=== PATIENT | male | born 1950 | race Caucasian/White ===

== ENCOUNTER 2024-01-09 05:04 | Inpatient (IN) | payer MEDICARE, SELFPAY ==
[2024-01-05 08:06] VITALS: BMI 28.8
[2024-01-05 08:58] LABS: Hematocrit 43.6 % (39.0-52.0); Hemoglobin 14.5 g/dL (13.0-18.0); Mean Corp Hgb Conc. 33.3 g/dL (33.0-37.0); Mean Corpuscular Hgb 28.9 pg (27.0-31.0); Mean Platelet Volume 9.3 fL (7.4-10.4); Platelet Count 226 10^3/uL (130-400); Red Blood Cell Count 5.01 10^6/uL (4.70-6.10); Red Cell Dist. Width 13.2 % (11.5-14.5); White Blood Cell Count 6.8 10^3/uL (4.8-10.8)
[2024-01-05 09:10] LABS: INR 1.06; PT 13.8 Sec (11.4-14.6)
[2024-01-05 09:11] LABS: APTT 29.1 Sec (23.4-35.0)
[2024-01-05 09:13] LABS: Urine Albumin Negative (Neg - Trace); Urine Bilirubin Negative (Negative); Urine Character Clear (Clear); Urine Color Yellow; Urine Glucose 3+ (Negative); Urine Ketone Negative (Negative); Urine Leukocyte Negative (Negative); Urine Nitrite Negative (Negative); Urine Occult Blood Negative (Negative); Urine Specific Gravity 1.015 (<1.030); Urine Urobilinogen Negative (Neg - 1+)
--- NOTE | 2024-01-05 10:30 | CM ---
Chart reviewed. Met with the patient and his in PAT. Reviewed preoperative and postoperative instructions and restrictions, along with showering guidelines. Gave patient 2 soaps. Patient is agreeable to a home visit by CT Transitional RN.
Patient is independent of ADLS, lives with his in a split level home, 0 LING, 0 DME. Plan is for the patient to return home with CT Transitional RN. CM to follow
[2024-01-05 10:43] LABS: ALT (SGPT) 25 U/L (0-50); AST (SGOT) 24 U/L (17-59); Albumin 4.9 g/dl (3.5-5.0); Alkaline Phosphatase 71 U/L (38-126); Blood Urea Nitrogen 18 mg/dl (9-20); Calcium 10.3 mg/dl (8.4-10.2); Carbon Dioxide 29 mmol/L (22-30); Chloride 98 mmol/L (98-107); Direct Bilirubin 0.4 mg/dl (0.0-0.4); Estimated Creatinine Clearance 63 ml/min; Glucose 113 mg/dl (70-99); Potassium 4.2 mmol/L (3.5-5.1); Sodium 138 mmol/L (135-145); Total Bilirubin 0.7 mg/dl (0.2-1.3); Total Protein 7.5 g/dl (6.3-8.2); eGFR > 60.00
[2024-01-05 11:39] LABS: Glycohemoglobin (HgbA1c) 6.9 % (4.0-5.6)
--- NOTE | 2024-01-08 22:35 | W.PN.CT ---
Assessment / Plan
-
Assessment:
-S/P CABG x 4 (In situ ALVARENGA to LAD, Ao to radial artery to diagonal, Ao to RSVG to OM1 sequential to OM 3)/Open left radial artery harvest/ R EVH/ELAA (35 mm clip) by Dr. Peña, 01/09/24, pod#1
-Multivessel CAD
-[place]
-Sinus bradycardia
-[id number] score of 3
-LVEF 55% per intraop ENA
-HTN
-Hyperlipidemia
-T2DM (A1C 6.9)
-Left Sciatica
-Prostate Ca, currently being watched
-S/P Right inguinal herniorrhaphy
-S/P Tonsillectomy/Adenoidectomy
-Acute postop blood loss/Anemia (stable without blood transfusion)
-Acute postop atelectasis
-Acute postop hypovolemia with subsequent hypervolemia
Plan:
-No major issues overnight. Hemodynamically and neurologically intact
-Successfully extubated on 01/09/24 @ 1500
-Weaned of NTG gtt overnight, remains on insulin per protocol
-U/O since OR
-Cont. current meds (ASA, Amiodarone, Lopressor, Lipitor, Norvasc for radial graft; will add Plavix)
-Monitor chest tube drainage: 2meds , L pleural
-D/C'd SLIC and a-line @ 0400
-Maintain insulin gtt another day per protocol, tele phase when off
-Diabetes education/management consult given hgb A1C of 6.9
-Consider cantu another day given Prostate Ca
-Maintain cordis
-Maintain temporary PW (will pull before d/c home)
-Encourage use of IS
-Wean off of O2 as tolerated
-OOB into chair/Ambulate
Subjective
-
Date of Service: January 08, 2024
Objective Data
-
Lab Results
04/11/24 08:20
01/05/24 08:20
PT 13.8 Sec (11.4-14.6) 01/05/24 08:20
INR 1.06 01/05/24 08:20
APTT 29.1 Sec (23.4-35.0) 01/05/24 08:20
[2024-01-09] VITALS (21 sets, daily range): BP systolic 77–175; BP diastolic 59–85; BMI 28.2
--- NOTE | 2024-01-09 06:00 | PTCARENOTE ---
Received pt as SDA for CABG surgery; ABO lab obtained and sent; pt prepped and cliped; x2 showers at home confirmed; CHG wipes provided; gown provided; pt asked all admission questions; home medications reviewed; pre-op checklist review with pt;
pre-op medications administered; pt's at bedside; awaiting CVOR.
[2024-01-09] MEDS: MAGNESIUM OXIDE 500 MG PO (06:21)
[2024-01-09] MEDS: LOPRESSOR 12.5 MG PO ×2 (06:21→18:12)
[2024-01-09] MEDS: PROTONIX 40 MG PO (06:21)
[2024-01-09] MEDS: BACTROBAN 2% OINTMENT 1 APPLIC NASAL ×2 (06:22→20:22)
--- NOTE | 2024-01-09 06:31 | W.CVOR.SURPR ---
CVOR Surgeon Immed Pre Op
-
I have examined this patient prior to performance of the scheduled procedure.
The patient's condition is unchanged from the time of the dictated/written History and
Physical and the patient is able to undergo the scheduled procedure.
CABG x 3-4 +/- LORRIE Clip
[2024-01-09 06:51] LABS: Hematocrit 42.5 % (39.0-52.0); Hemoglobin 14.3 g/dL (13.0-18.0); Mean Corp Hgb Conc. 33.6 g/dL (33.0-37.0); Mean Corpuscular Hgb 28.8 pg (27.0-31.0); Mean Corpuscular Volume 85.5 fL (80.0-94.0); Mean Platelet Volume 9.1 fL (7.4-10.4); Platelet Count 213 10^3/uL (130-400); Red Blood Cell Count 4.97 10^6/uL (4.70-6.10); Red Cell Dist. Width 13.1 % (11.5-14.5); White Blood Cell Count 6.7 10^3/uL (4.8-10.8)
[2024-01-09 07:14] LABS: Blood Urea Nitrogen 17 mg/dl (9-20); Calcium 9.7 mg/dl (8.4-10.2); Carbon Dioxide 28 mmol/L (22-30); Chloride 102 mmol/L (98-107); Estimated Creatinine Clearance 86 ml/min; Glucose 136 mg/dl (70-99); Potassium 3.8 mmol/L (3.5-5.1); Sodium 140 mmol/L (135-145); eGFR > 60.00
[2024-01-09 07:35] LABS: ACT+ - POC 107 Seconds (82-134)
[2024-01-09 07:37] LABS: Urine Albumin Negative (Neg - Trace); Urine Bilirubin Negative (Negative); Urine Character Clear (Clear); Urine Color Yellow; Urine Glucose 3+ (Negative); Urine Ketone Negative (Negative); Urine Leukocyte Negative (Negative); Urine Nitrite Negative (Negative); Urine Occult Blood 4+ (Negative); Urine Urobilinogen Negative (Neg - 1+); Urine pH 6.5 (5.0-9.0)
[2024-01-09 07:38] LABS: B.E. - POC 0.2 mmol/L; Glucose - POC 139 mg/dl (65-99); HCO3 - POC 24 mmol/L (21-29); Hematocrit - POC 39 % PCV (42-52); Hemodilution- POC Yes; Hemoglobin Calculated - POC 13.2; Ionized Calcium - POC 1.15 mmol/L (1.12-1.27); O2 Saturation %Calculated-POC 99.1 5 (92-96); PCO2 - POC 37 mmHg (35-45); PO2 - POC 133 mmHg (80-100); Potassium - POC 3.3 mmol/L (3.6-5.0); Sodium - POC 144 mmol/L (135-145); pH - POC 7.43 (7.35-7.45)
[2024-01-09 08:37] LABS: Urine Amorphous Seen; Urine Mucus Few
[2024-01-09 08:38] LABS: Urine White Cell 0-2 /HPF (0-5)
--- NOTE | 2024-01-09 08:49 | CM ---
pt in OR today, cm to follow.
[2024-01-09 09:04] LABS: ACT+ - POC 616 Seconds (82-134)
[2024-01-09 09:25] LABS: B.E. - POC 1.7 mmol/L; Glucose - POC 162 mg/dl (65-99); HCO3 - POC 26 mmol/L (21-29); Hematocrit - POC 32 % PCV (42-52); Hemodilution- POC Yes; Hemoglobin Calculated - POC 10.9; Ionized Calcium - POC 0.98 mmol/L (1.12-1.27); PCO2 - POC 39 mmHg (35-45); PO2 - POC 350 mmHg (80-100); Potassium - POC 4.5 mmol/L (3.6-5.0); Sodium - POC 139 mmol/L (135-145); pH - POC 7.43 (7.35-7.45)
[2024-01-09 09:29] LABS: ACT+ - POC 606 Seconds (82-134)
[2024-01-09 10:04] LABS: B.E. - POC -0.5 mmol/L; Glucose - POC 172 mg/dl (65-99); HCO3 - POC 25 mmol/L (21-29); Hematocrit - POC 33 % PCV (42-52); Hemodilution- POC Yes; Hemoglobin Calculated - POC 11.4; Ionized Calcium - POC 1.13 mmol/L (1.12-1.27); O2 Saturation %Calculated-POC 99.8 5 (92-96); PCO2 - POC 42 mmHg (35-45); PO2 - POC 233 mmHg (80-100); Potassium - POC 4.1 mmol/L (3.6-5.0); Sodium - POC 142 mmol/L (135-145); pH - POC 7.38 (7.35-7.45)
[2024-01-09 10:09] LABS: ACT+ - POC 523 Seconds (82-134)
[2024-01-09 10:41] LABS: ACT+ - POC 107 Seconds (82-134)
[2024-01-09 10:44] LABS: B.E. - POC -0.7 mmol/L; Glucose - POC 145 mg/dl (65-99); HCO3 - POC 23 mmol/L (21-29); Hematocrit - POC 32 % PCV (42-52); Hemodilution- POC Yes; Ionized Calcium - POC 1.28 mmol/L (1.12-1.27); PCO2 - POC 34 mmHg (35-45); PO2 - POC 350 mmHg (80-100); Potassium - POC 3.4 mmol/L (3.6-5.0); Sodium - POC 142 mmol/L (135-145); pH - POC 7.44 (7.35-7.45)
--- NOTE | 2024-01-09 11:12 | W.PN.CT.SURG ---
Addendum entered and electronically signed by Shekhar Peña MD 01/09/24 12:52:
LORRIE Clip SN: [id number]
Original Note:
CT Surgery Operative Note
-
CARDIAC SURGERY OPERATIVE REPORT
Preoperative Diagnosis: Multivessel Coronary Artery Disease with Proximal LAD and Exertional Angina
Postoperative Diagnosis: Same
Procedure(s) Performed:
1. Standard sternotomy with aortic and right atrial cannulation
2. Open left radial artery harvest
3. Coronary artery bypass grafting x 4 (In situ ALVARENGA to LAD, Ao to radial artery to diagonal, Ao to RSVG to OM1 sequential to OM 3)
4. Endoscopic vein harvesting of right lower extremity
5. Placement temporary ventricular pacing wires
6. Transesophageal echocardiography
7. Left atrial appendage ligation, 35mm clip
Date of Surgery: 01/09/2024
Comorbidities:
1. Multivessel CAD with proximal LAD involvement and exertional angina
2. Hypertension
3 Hyperlipidemia
4. Type 2 diabetes mellitus
5. Diagnosis of prostate cancer, currently being watched
6. [id number] score of 3
Attending Surgeon: Shekhar Peña MD, MS
Assistants: Shekhar Magallanes PA-C (present and necessary to director of first impressions, open left radial artery harvest, retraction, suction, exposure, suture management, and wound closure under my direction), Hollie Rojas PA-C (endoscopic right leg vein harvest)
Anesthesiology: Lucho Cesar MD and Alexandro Jackson CRNA
Scrub and Circulating RNs: Amy Carlson, RN, Bhavana Maza RN
Winding Operator: Randall Deleon CCP
Anesthesia: GETA
EBL: per perfusion records
Products: none
CPB Time: 81 minutes
Aortic Cross Clamp Time: 70 minutes
Indication(s) for Procedures: This is a 73-year-old male with type 2 diabetes who is having worsening exertional chest pain and pressure over the last 3 months concerning for unstable angina. He underwent left heart catheter demonstrated
approximately disease as well as ostial circumflex disease with an occluded OM 3 with collateralization. Due to his ongoing symptoms and disease pattern and diabetic status, he met class I indication for revascularization. He accepted the risk of
surgery and so we proceeded.
Conduit(s) Quality:
ALVARENGA -excellent/uniform in size, good quality
Radial�excellent/uniform in size, no evidence of dissection or injury
RSVG -excellent/uniform in size with minimal varicosities and not thickened
Target(s) Quality:
OM3/LPL -decent quality target with minimal inflow of approximately 50 cc a minute at a pressure of 80 with test dose of antegrade
OM1 -smaller sized target, 40 cc of flow at a pressure of 80 with test dose of antegrade
Diagonal�large diagonal system providing coverage of mostly anterior lateral wall, excellent flow at approximately 60 to 70 cc a minute at a pressure of 80.
LAD -heavily diseased midportion down towards the distal portion/able to find a soft spot, good graft with evidence of perfusion to the LAD territory and pinking up of the myocardium
Findings: Left ventricular ejection fraction preoperatively was 60% with no regional wall motion abnormalities. Following surgery his EF remained the same at approximately 60% with no new regional wall motion abnormalities. No inotropic support
was required.. The ALVARENGA was harvested in a skeletonized fashion. The radial artery was harvested in an open fashion. Following bypass grafting, test dose cardioplegia was given down each distal and confirmed patency and hemostasis. Each distal was
probed both proximally and distally to confirm disease and patency, respectively. Flow probe assessment of all graft demonstrated excellent mean flows. Radial to diagonal had a mean flow of 44 cc a minute with a PI of less than 2, vein graft to OM
sequential's had a mean flow of 86 cc a minute with a PI of 1.7. The ALVARENGA to LAD had a mean flow of 35 cc a minute with a PI of 2.3. He did require 1 defibrillation event after coming off cardiopulmonary bypass as he was in V-fib which resolved
with 1 shock. He regained sinus rhythm shortly after and remained there. No products were given. No inotropic support was required. His left atrial appendage was verified to be free of any thrombus or debris preoperatively. Due to his elevated
[id number] score (3), he was ligated with a 35 mm clip which was found to be flush with no flow in the left atrial appendage with only a small less than 1 cm residual stump.
Description of Procedure: The patient was taken to the operating room. Their identity and procedure to be performed were verified and they were positioned supine on the operating table. Induction via general anesthesia with endotracheal intubation
was performed and central venous access and arterial monitoring were inserted. A preoperative transesophageal echocardiogram was performed to assess cardiac function and valvular function. The patient was then prepped and draped from chin to feet in
a sterile fashion. A preoperative time-out was performed with all members of the team present. A midline chest incision was performed along with median sternotomy. Simultaneous open left radial artery and endoscopic access of the right lower
extremity for saphenous vein harvest was obtained along with administration of an initial 5,000 units of IV heparin. A RulTract sternal retractor was positioned to exposure the left internal mammary bed. The mammary was harvested and found to have
good flow. A bulldog clamp was applied to the distal end of the mammary after dividing it. It was wrapped in a papaverine soaked RayTec and replaced back into the left hemithorax. The RulTract was exchanged for a median sternal retractor. The
innominate vein was isolated. Full heparinization was given (a total of 45,000 units). We created a pericardial well. The aortic cannulation site was chosen where it was soft, pliable, and free of calcium. Cannulation was performed with an arterial
cannula in the ascending aorta and a triple-stage venous cannula through the right atrial appendage. The arterial cannula line had an appropriate bounce and correlating pressures with test dosing. Next, a root vent/antegrade cannula was inserted
into the ascending aorta. The ACT was confirmed to be over 400 and retrograde autologous priming was performed before commencing cardiopulmonary bypass. The pulmonary artery was away from the aorta to facilitate a clamp site. The aortic
cross-clamp was placed after decreasing the flow on the bypass and mean arterial pressure. A total of 1.2L initial dose of antegrade Del-Nido cardioplegia solution was given and planned for re-dosing every 75 minutes as necessary. There was rapid
electro-mechanical arrest of the heart at 300 cc of cardioplegia. The left ventricle was observed for distention on echocardiogram and manual palpation. Cold slush was placed into a sponge and topically on the RV while we systemically cooled to 34
degrees centigrade.
The left atrial appendage was then retracted in order to be visualized in the surgical field. It was sized to a 35 mm clip which was deployed flush the base. I positioned the heart to expose the OM 3/LPL territory. A tanacross blade was used to
expose the coronary and perform the arteriotomy. Coronary Waterman scissors were used to enlarge the incision. The saphenous vein was trimmed and beveled to an appropriate size. The distal anastomosis was performed using 7-0 prolene in an end-to-side
fashion. Antegrade cardioplegia was administered into the graft. Appropriate hemostasis and flow were confirmed. The graft was measured for length to the aorta and cut. A suitable site on the 1st obtuse marginal was chosen. We dissected and
prepared the distal target in a similar fashion. An [id number] anastomosis was created with a 7-0 prolene after creating a small venotomy on the underbelly of the vein graft. Antegrade cardioplegia was administered into the graft distally and then
proximally after occluding the sequential portion. Appropriate hemostasis and flow were confirmed. The graft was measured for length to the aorta and cut. Next the diagonal was then exposed. To cover large territory and was heavily diseased
proximally. A suitable large sized branch of the diagonal was then prepped in a similar fashion. The radial artery was beveled distally and an end-to-side anastomosis was created with 7-0 Prolene in a running fashion. The radial artery was then
measured towards the aorta and then cut appropriately. A suitable target on the mid/distal left anterior descending was identified. We dissected and prepared the distal target in a similar fashion. We retrieved the ALVARENGA from the chest and created a
pericardial opening while being cognizant of the phrenic nerve to facilitate the course of the mammary. The distal end of the mammary was prepped and beveled to size. We verified orientation and length of the ELOISE and found brisk flow. An end-to-side
anastomosis was created with a 7-0 prolene. We temporarily released the bulldog clamp on the mammary to inspect flow. Perfusion to the LAD territory was visualized and hemostasis was confirmed. The bull clamp was replaced on the mammary. The heart
was filled and the root was distended with antegrade cardioplegia to make final assessment of graft length and orientation. We created 2 aortotomies using a #11 blade then a 4.0mm aortic punch. The proximal anastomoses were created in an end-to-side
fashion using 6-0 prolene and 7-0 Prolene for the vein and radial artery, respectively. At the the same time, we re-warmed to 36.5 degrees centigrade. The bulldog clamp was removed from the mammary. Temporary bipolar ventricular pacing wires were
placed on the base of the right ventricle. The patient was placed in a Trendelenburg position and flows on bypass were lowered. The aortic cross clamp was removed and flows were slowly brought back up. All bypass grafts were inspected and were free
from kinking or twisting. The distal and proximal anastomoses appeared hemostatic. Once transesophageal echocardiography appeared satisfactory for de-airing, the flows were temporarily lowered for root vent removal. After verifying acceptable
parameters, we initiated weaning from cardiopulmonary bypass. Once we were off cardiopulmonary bypass, the venous cannula was clamped and removed. A test dose of protamine was administered and the patient was monitored for any adverse reaction
before resuming protamine. Once half of the protamine dose was delivered, pump suckers were turned off and the systolic blood pressure was lowered for aortic decannulation. The aortic cannula was removed and pursestrings were tied down. All
cannulation sites were oversewn with a 4-0 prolene. Flow probe assessment of all grafts was performed. The mammary bed was inspected and hemostasis was confirmed. Once the mediastinum was hemostatic, 19Fr Brandyn drain was placed in the left pleural
cavity and two 24Fr Brandyn drains were placed within the pericardium. The sternum was approximated with 4 #7 and 3 #6 double stainless steel wires. Fascia was approximated with #1 vicryl suture. The subcutaneous, dermis and epidermis were closed in
layers in a running fashion. The skin wound was cleansed and dressed.
All instrument, sponge, and needle counts were confirmed to be correct x 2 at the end of the operation. The patient was transferred to the cardiac intensive care unit in critical but stable condition.
I, Dr. Shekhar Peña, was present, scrubbed for, and performed all critical elements of this procedure.
Shekhar Peña MD, MS
Cardiothoracic Surgeon
[facility]
This operative dictation was created using the [employer] dictation system. Please excuse any grammatical, typographical, or 'sound alike' errors
[2024-01-09 11:43] LABS: Glucose - Point of Care 174 mg/dl (70-99)
--- NOTE | 2024-01-09 11:47 | CON.INTV ---
Consultation
Consultation Request
Date/Time Consultation Requested: 01-09-24
Date/Time Consultation Performed: 01-09-24
Requesting Provider: Dr Peña
Performing Provider: Dr De La Rosa
Reason for Consultation: s/p CABG MV
Medical History
-
Chief Complaint: s/p CABG
History of Present Illness:
Mr Wander Dawn is a 73/M adm 01-08 for elective CABG in setting of multivessel disease. Seen at office by Dr Peña, prepared for surgery.
Seen at CVICU soon after returning from OR. D/w Dr Peña. S/p CABGx4, LORRIE ligation 01-08
Sedated, on MV (well synchronized)
Past Medical History
Past Medical History: Cancer (prostate), HTN, Hypercholesterolemia, NIDDM and Other (L sciatica. R inguinal hernia repair. T&A)
Social History
Tobacco: Former Smoker
Alcohol: Other (6-8 beers per wk)
Drug: None
Personal:
Living: With Family
Employment: Retired
Family History
Family History: CAD (M: CABG) and Cancer (M: breast)
Allergies / Home Medications
Allergies
Allergy/AdvReac Type Severity Reaction Status Date / Time
No Known Allergies Allergy Unverified 01/04/24 12:13
Home Medications
�Medication �Instructions �Recorded �Confirmed �Last Taken �Type
alfuzosin 10 mg tablet,extended 10 mg PO 1400 Urinary Issue 01/04/24 01/09/24 01/08/24 12:00 History
release 24 hr
amlodipine 10 mg tablet 10 mg PO DAILY Blood Pressure 01/04/24 01/09/24 01/06/24 04:00 History
aspirin 81 mg capsule 81 mg PO DAILY Blood Clot 01/04/24 01/09/24 01/08/24 07:00 History
Prevention/Tx
atenolol 25 mg tablet 25 mg PO DAILY Blood Pressure 01/04/24 01/09/24 01/08/24 07:00 History
atorvastatin 40 mg tablet 40 mg PO DAILY High Cholesterol 01/04/24 01/09/24 01/08/24 07:00 History
dapagliflozin propanediol 5 mg 5 mg PO DAILY Diabetes 01/04/24 01/09/24 01/06/24 04:00 History
tablet (Farxiga)
ferrous sulfate 325 mg (65 mg 325 mg PO Q72H Supplement 01/04/24 01/09/24 01/06/24 04:00 History
iron) tablet (iron)
hydrochlorothiazide 12.5 mg tablet 12.5 mg PO DAILY Blood Pressure 01/04/24 01/09/24 01/08/24 07:00 History
metformin 500 mg tablet 2,000 mg PO DAILY Diabetes 01/04/24 01/09/24 01/08/24 07:00 History
olmesartan 40 mg tablet 40 mg PO DAILY HIGH BLOOD 01/04/24 01/09/24 01/06/24 04:00 History
tadalafil 5 mg tablet 5 mg PO DAILY Urinary Issue 01/04/24 01/09/24 01/06/24 04:00 History
Review of Systems
-
Unable to Obtain full review of systems at this time due to: Patient Intubation
Vitals / Labs / Diagnostic Testing
Vital Signs
Temp Pulse Resp BP Pulse Ox
96.3 F L 66 12 169/80 97
01/09/24 11:45 01/09/24 11:30 01/09/24 11:30 01/09/24 05:11 01/09/24 11:30
Microbiology
01/05/24 08:20 Nose MRSA Screen - Final
No Methicillin Resistant Staphylococcus aureus isolated.
Diagnostic Testing:
Physical Exam
-
HEENT: Normocephalic, Moist Mucous Membranes and Other (ITALO)
Cardiovascular: Regular Rhythm, Murmur (n), Peripheral Edema (n) and Other (RIJ SGC)
Respiratory: Clear and Non-Labored Respirations
GI: Soft and Non Distended
Neurology: Other (sedated)
Skin: Warm
General: Comfortable
Assessment
-
Assessment:
Mr Wander Dawn is a 73/M adm 01-08 for elective CABG in setting of multivessel disease. Seen at office by Dr Peña, prepared for surgery.
Impression:
S/p CABGx4, LORRIE ligation 01-08
Conditions ORDINARY SEAMAN:
HTN
HLD
T2DM
CAD
L sciatic pain
Prostate cancer
Former smoker
Calcified granulomas on CT
Plan:
Ventilator settings reviewed: SIMV 55-120-4-5-0.6 (96%)
FiO2 will be weaned
Minute ventilation will be adjusted
Arterial blood gases will be monitored
Spontaneous breathing trial will be attempted with hopeful extubation after anesthesia/sedation wear off
Pressors/antihypertensive/inotropes/diuretics will be provided as needed
Monitor chest tube output
Monitor hemoglobin
Monitor platelet count and coags
Transfuse blood product if needed
CT surgery following chest tubes
Monitor blood sugar
Insulin drip per protocol
Aspiration precautions
VAP prevention protocol
DVT prophylaxis
Early nutrition
Early mobilization
Critical care time: 35 min
D/w Dr Peña
Diagnostic tests:
CXR 01-09-24: RIJ cords, sternotomy wiring, ETT, chest/med tubes
[2024-01-09 11:48] LABS: Hematocrit 33.1 % (39.0-52.0); Platelet Count 172 10^3/uL (130-400)
[2024-01-09 11:49] LABS: Ionized Calcium 1.23 mMOL/L (1.15-1.33); O2 Saturation % 99.3 % (94-98); PCO2 42 mmHg (35-48); PO2 103 mmHg (83-108); Potassium 3.5 mMOL/L (3.5-5.1); Sodium 138 mMOL/L (136-145)
[2024-01-09 11:59] LABS: APTT 27.9 Sec (23.4-35.0)
[2024-01-09] MEDS: DILAUDID 0.5 MG IV ×2 (11:59→18:25)
[2024-01-09 12:04] LABS: Blood Urea Nitrogen 16 mg/dl (9-20); Estimated Creatinine Clearance 86 ml/min; Glucose 159 mg/dl (70-99); Magnesium 2.6 mg/dl (1.6-2.3)
[2024-01-09 12:09] LABS: Hemoglobin 11.4 g/dL (13.0-18.0)
[2024-01-09] MEDS: KCL 50 IV ×2 (12:16→13:32)
[2024-01-09] MEDS: ANCEF 10 IV ×2 (12:16)
[2024-01-09] MEDS: NSS 500 IV (12:16)
[2024-01-09] MEDS: NOVOLOG FLEXPEN SC ×3 (12:17→16:31)
[2024-01-09] MEDS: LIPITOR PO (12:17)
[2024-01-09] MEDS: NEURONTIN PO ×2 (12:17→16:30)
--- NOTE | 2024-01-09 12:20 | PTCARENOTE ---
Received pt from CVOR at 1130; pt intubated and sedated; NSR on monitor and VSS; Epicardial wires set to VVI and no pacing noted; RIJ Cordis and SLIC; Right A-line; PIV x1 all lines leveled and zeroed; Insulin, Precedex, Nitro all infusing
see flow sheet for details; Lungs diminished throughout; CT x3 to -20 wall suction no air leak and no crepitus noted; hypoactive bowel sounds; Byrd catheter draining blood tinged urine CV PHARMACY PICKING TECHNICIAN aware; palpable pulses throughout; no edema noted; all
surgical sites C/D/I; see nursing documentation for details.
--- NOTE | 2024-01-09 12:41 | PTCARENOTE ---
Addendum entered by Corinna Peck RN 01/09/24 12:51:
Family at bedside, updates given; respiratory at bedside and pt placed back on SIMV.
Original Note:
Pt awake and folllowing commands; respiratory at bedside; pt place on CPAP.
--- NOTE | 2024-01-09 12:43 | W.PN.UPDATE ---
Update Note
Progress Note Update
73 year old male was electively admitted 01/09/24 for CABG due to exertional chest pressure from LAD and left circumflex disease.
IV fluids: 1000
U.O.:� 700
Blood:� none
Wires:� v-wire
Inotropes:� none
Pressors:� none
Venodilator: NTG
Sedatives:� Precedex
�
NEURO: sedated on Precedex 0.6, pupils +2mm B/L
RESP: #8OT @23cm> 550/60%/14/5. Lungs clear B/L. 2 mediastinal (15cc on arrival) and L pleural (15cc on arrival) chest tubes to -20cm suction. Sanguineous drainage
CV: RRR +S1, S2, no S3, no�rub, no murmur. Dermabond to median sternotomy. RIJ intact, no [place]
ABD: round, soft, no BS
EXT: no edema, +2/4 DP pulses B/L, no femoral bruit,RLE JEYSON wrap intact; right radial A-line intact; left radial harvest site intact
: Byrd with clifton color urine
�
A/P: POD #0 s/p CABG x 4 ALVARENGA-LAD, radial-Diag, SVG-OM1 and OM3. Left atrial appendage #35 mm clip ([id number] score of 3)
ENA: EF�50-55%. Midchamber septal wall is hypertrophied with a thickness of 2.2 cm. Mild MR
- wean and extubate
# CAD
- will need ASA/Plavix, beta-kalyn and high intensity statin
- IV NTG until taking solids, then Amlodipine 5mg daily for radial patency
- monitor pulse ox on left radial harvest site
# HTN
- resume home meds as BP permits: olmesartan 40mg daily, HCTZ 12.5mg daily
# Prostate cancer
- currently under outpatient surveillance
- resume tadalafil 5mg daily and alfuzosin 10mg daily when taking solids and BP permits
�
# acute surgical blood loss anemia-expected
- initial post-op Hb 11.4
- trend CBC
�
# T2DM (A1C 6.9 )
- insulin infusion x 48h
- resume MFM 100mg BID and Farxiga 5mg daily
�
--- NOTE | 2024-01-09 12:54 | W.PN.CD ---
Addendum entered and electronically signed by Nicholas Estrada MD 01/09/24 15:37:
I saw and examined the patient.
The TOOL ENGINE LATHE SET UP OPERATOR's note was reviewed and I agree with the note.
S/P CABG x 4 (In situ ALVARENGA to LAD, Ao to radial artery to diagonal, Ao to RSVG to OM1 sequential to OM 3) by Dr Peña 01/09/24
- awake . alert.
- hemodynamically stable and in sinus
- continue post op care as directed by CT surgery.
Original Note:
Today's Communication / Plan
-
Follow telemetry
Impression / Plan
-
BACKGROUND: 73M with hyperlipidemia, hypertension, type 2 diabetes who developed angina and was found to have significant pLAD & mLAD disease. He presents for CABG.
Propagator: Dr. Velasquez
CAD S/P CABG x 4 (In situ ALVARENGA to LAD, Ao to radial artery to diagonal, Ao to RSVG to OM1 sequential to OM 3) by Dr Peña 01/09/24
-Post EF unchanged at 60% without RWMA
-EKG with inferior T wave abnormality, QTc prolonged, EKG in am
-Pericardial rub on exam
-Follow telemetry
HTN, follow post operatively
HLD, no lipid panel for review, continue atorvastatin 40mg
Type 2 DM, Hgba1c 6.9%
Prostate cancer, outpatient surveillance
SUBJECTIVE:
Intubated. Nodding head appropriately.
Physical Exam
Vital Signs/Labs
Vital Signs
Temp Pulse Resp BP Pulse Ox
96.3 F L 67 12 169/80 95
01/09/24 12:06 01/09/24 12:05 01/09/24 12:06 01/09/24 05:11 01/09/24 12:52
01/08/24 01/09/24 01/10/24
06:59 06:59 06:59
Actual Weight 90.4 kg
01/09/24 11:30
PT 17.0 Sec (11.4-14.6) H 01/09/24 11:30
INR 1.40 01/09/24 11:30
APTT 27.9 Sec (23.4-35.0) 01/09/24 11:30
Magnesium 2.6 mg/dl (1.6-2.3) H 01/09/24 11:30
Physical Exam
Constitutional: No acute distress and Comfortable
EENT: Anicteric and Moist mucous membranes
Cardiovascular: Rhythm & rate is regular, S1S2 is normal, Murmur/rub/gallop absent and Rub present
Respiratory: Lungs clear to auscul.
GI: Soft, Distention absent, Flat, Non tender and Normal bowel sounds
Neuro/Psych: AO x 3
Other: Skin (warm and dry)
Data Reviewed
-
Date of Service: January 09, 2024
EKG: Report Reviewed by me
[2024-01-09 13:00] LABS: Glucose - Point of Care 129 mg/dl (70-99)
[2024-01-09 13:13] LABS: ACT+ - POC 82 Seconds (82-134)
[2024-01-09] MEDS: TYLENOL PO (13:19)
[2024-01-09 14:00] LABS: Glucose - Point of Care 121 mg/dl (70-99)
--- NOTE | 2024-01-09 14:18 | PTCARENOTE ---
Respiratory at bedside and pt placed on CPAP.
--- NOTE | 2024-01-09 14:30 | PTCARENOTE ---
+ rub CV CIGARETTE MACHINE FILLER updated and aware.
[2024-01-09] MEDS: OFIRMEV 100 IV (14:34)
[2024-01-09 14:53] LABS: B.E. 0.9 mmol/L; HCO3 23.1 mmol/L (21-28); Ionized Calcium 1.17 mMOL/L (1.15-1.33); O2 Saturation % 99.6 % (94-98); PCO2 29 mmHg (35-48); PO2 141 mmHg (83-108); Potassium 4.9 mMOL/L (3.5-5.1); Sodium 140 mMOL/L (136-145); pH 7.51 (7.35-7.45)
[2024-01-09] MEDS: TORADOL 15 MG IV ×2 (15:03→23:04)
--- NOTE | 2024-01-09 15:05 | PTCARENOTE ---
ABGs reviewed with CV PLATFORM ATTENDANT; respiratory at bedside and pt extubated now on 6L NC 98%.
[2024-01-09 15:08] LABS: Glucose - Point of Care 124 mg/dl (70-99)
[2024-01-09 15:35] LABS: Hematocrit 35.3 % (39.0-52.0); Hemoglobin 12.1 g/dL (13.0-18.0); Platelet Count 185 10^3/uL (130-400)
[2024-01-09] MEDS: CALCIUM CHLORIDE 10% SYRINGE 50 MG IV (15:54)
[2024-01-09] MEDS: CALCIUM CHLORIDE 10% SYRINGE 50 ML IV (15:54)
[2024-01-09] MEDS: LR 500 IV (15:57)
[2024-01-09 15:58] LABS: Glucose - Point of Care 129 mg/dl (70-99)
[2024-01-09] MEDS: LOW STRENGTH ASPIRIN 81 MG PO (16:14)
[2024-01-09] MEDS: NORVASC 5 MG PO ×2 (16:14→19:04)
[2024-01-09] MEDS: PACERONE PO (16:31)
[2024-01-09] MEDS: ROXICODONE 5 MG PO (17:05)
[2024-01-09 17:58] LABS: Glucose - Point of Care 99 mg/dl (70-99)
[2024-01-09] MEDS: ANCEF 5 IV (18:00)
[2024-01-09] MEDS: SENOKOT-S 1 TABLET PO (19:51)
[2024-01-09 20:08] LABS: Glucose - Point of Care 120 mg/dl (70-99)
[2024-01-09] MEDS: DILAUDID 0.25 MG IV (20:15)
[2024-01-09] MEDS: FLEXERIL 5 MG PO (20:28)
[2024-01-09] MEDS: MYLICON 80 MG PO (20:43)
--- NOTE | 2024-01-09 20:45 | PTCARENOTE ---
Assumed care of patient from lucille RN. Pt AAOx3. CONTRERAS and following commands appropriately. SR on monitor. HR 80s. Temporary epicardial v-wire set to backup VVI 30/8/2. +rub. +pulses. No edema. BP running slightly high - SBP 130-150s. Nitro
started per protocol. Pt on 6 L NC. POX 98%. Lung sounds diminished at the base. Deep breathing and IS encouraged. Left pleural and Mediastinal CTx2 intact and to -20 suction. Occasional nonproductive weak cough. Abdomen soft/nontender. Hypoactive
BS. Temperature sensing Byrd catheter CDI. Pt voiding yellow urine. All surgical sites stable. Right IJ w/ SLIC and right radial a-line CDI. All lines leveled, zeroed, and flushed. Right hand PIV CDI. Glycemic protocol followed. See worklist for
full nursing assessment, interventions, and VS. See MAR for medication administration.
[2024-01-09] MEDS: TYLENOL 1000 MG PO (22:11)
[2024-01-09 22:12] LABS: Glucose - Point of Care 106 mg/dl (70-99)
[2024-01-09] MEDS: PACERONE 200 MG PO (22:12)
[2024-01-09] MEDS: NEURONTIN 100 MG PO (22:12)
[2024-01-10] VITALS (28 sets, daily range): BP systolic 109–149; BP diastolic 63–83; PULSE 65; O2SAT 94–97; BMI 27.9
[2024-01-10 00:07] LABS: Glucose - Point of Care 104 mg/dl (70-99)
--- NOTE | 2024-01-10 00:30 | PTCARENOTE ---
Pt reassessed. SR on monitor. HR 70s. Temporary epicardial v-wire intact. CVP 4-8. Right radial artery and R IJ cordis w/ SLIC CDI. All lines leveled, zeroed, and flushed. BP stable. Nitro infusing per protocol. Pt on 4 L NC. POX 95-96%. CT
assessment unchanged. Byrd catheter CDI. Pt voiding yellow urine. All surgical sites stable. Glycemic protocol followed. See MAR for medication administration.
[2024-01-10] MEDS: ROXICODONE 5 MG PO ×2 (00:33→21:59)
[2024-01-10 02:00] LABS: Glucose - Point of Care 125 mg/dl (70-99)
[2024-01-10] MEDS: ANCEF 5 IV ×2 (02:07→10:23)
[2024-01-10] MEDS: DILAUDID 0.25 MG IV (03:05)
--- NOTE | 2024-01-10 03:35 | W.PN.CT ---
Today's Communication / Plan
-
Plan:
-No major issues overnight. Hemodynamically and neurologically intact
-Successfully extubated on 01/09/24 @ 1500
-Weaned of NTG gtt overnight, remains on insulin per protocol
-U/O since OR 850 mL
-Cont. current meds (ASA, Amiodarone, Lopressor, Lipitor, Norvasc for radial graft; will add Plavix)
-Monitor chest tube drainage: 2meds 135/200, L pleural 70/185
-D/C'd SLIC and a-line @ 0500
-Maintain insulin gtt another day per protocol, tele phase when off
-Diabetes education/management consult given hgb A1C of 6.9
-Consider cantu another day given Prostate Ca
-Maintain cordis
-Maintain temporary PW (will pull before d/c home)
-Encourage use of IS
-Wean off of O2 as tolerated
-OOB into chair/Ambulate
Assessment / Plan
-
Assessment:
-S/P CABG x 4 (In situ ALVARENGA to LAD, Ao to radial artery to diagonal, Ao to RSVG to OM1 sequential to OM 3)/Open left radial artery harvest/ R EVH/ELAA (35 mm clip) by Dr. Peña, 01/09/24, pod#1
-Multivessel CAD
-USA
-Sinus bradycardia
-[id number] score of 3
-LVEF 55% per intraop ENA
-HTN
-Hyperlipidemia
-T2DM (A1C 6.9)
-Left Sciatica
-Prostate Ca, currently being watched
-S/P Right inguinal herniorrhaphy
-S/P Tonsillectomy/Adenoidectomy
-Acute postop blood loss/Anemia (stable without blood transfusion)
-Acute postop atelectasis
-Acute postop hypovolemia with subsequent hypervolemia
Discussed patient care with: Cardiology, Nursing, Respiratory Therapy, Pharmacy and Care Team
Subjective
Procedure
-S/P CABG x 4 (In situ ALVARENGA to LAD, Ao to radial artery to diagonal, Ao to RSVG to OM1 sequential to OM 3)/Open left radial artery harvest/ R EVH/ELAA (35 mm clip) by Dr. Peña, 01/09/24
-
Date of Service: January 10, 2024
Pt c/o mild incisional pain, otherwise feels well
Objective Data
-
PT 17.0 Sec (11.4-14.6) H 01/09/24 11:30
INR 1.40 01/09/24 11:30
APTT 27.9 Sec (23.4-35.0) 01/09/24 11:30
Vital Signs
Vital Signs
Temp Pulse Resp BP Pulse Ox
99 F 71 16 117/69 96
01/10/24 03:00 01/10/24 03:00 01/10/24 03:00 01/10/24 03:00 01/10/24 03:[address]
CT Intake/Output/Weight
01/09/24 01/09/24 01/10/24
06:59 18:59 06:59
Intake Total 653.6 / 838.1 184.5 / 838.1
Output Total 750 / 1180 430 / 1180
Balance -96.4 / -341.9 -245.5 / -341.9
SaO2: 95 (2L)
Physical Exam
-
General: Awake, Oriented and AOx3
Cardiovascular: Regular rate & rhythm, No Murmurs, No Rub and No Gallop
Respiratory: Decreased Breath Sounds
Sternum: Stable
Incision: Clean, Dry, Intact and Dressing Intact
Extremities: No Edema
Data Reviewed
-
Lab Results: Results Reviewed
Medications: Active Meds Reviewed
Chest X-Ray: Report Reviewed and Image Reviewed
ECG: Report Reviewed and Image Reviewed
[2024-01-10 04:07] LABS: Hematocrit 34.1 % (39.0-52.0); Hemoglobin 11.3 g/dL (13.0-18.0); Mean Corp Hgb Conc. 33.1 g/dL (33.0-37.0); Mean Corpuscular Hgb 28.7 pg (27.0-31.0); Mean Corpuscular Volume 86.5 fL (80.0-94.0); Mean Platelet Volume 9.5 fL (7.4-10.4); Platelet Count 192 10^3/uL (130-400); Red Blood Cell Count 3.94 10^6/uL (4.70-6.10); Red Cell Dist. Width 13.3 % (11.5-14.5); White Blood Cell Count 12.4 10^3/uL (4.8-10.8)
[2024-01-10 04:09] LABS: Glucose - Point of Care 101 mg/dl (70-99)
--- NOTE | 2024-01-10 04:24 | PTCARENOTE ---
Pt reassessed. SR on monitor. HR 65-70s. Temporary epicardial v-wire intact. BP stable. Nitro off per protocol. Pt on 2 L NC. POX 95%. CT assessment unchanged. Byrd catheter CDI and pt voiding yellow urine. All surgical sites stable. Glycemic
protocol followed. See MAR for medication administration. Labs drawn and sent. EKG obtained.
[2024-01-10 04:31] LABS: Blood Urea Nitrogen 19 mg/dl (9-20); Calcium 9.2 mg/dl (8.4-10.2); Carbon Dioxide 28 mmol/L (22-30); Chloride 110 mmol/L (98-107); Estimated Creatinine Clearance 77 ml/min; Glucose 99 mg/dl (70-99); Magnesium 2.4 mg/dl (1.6-2.3); Potassium 4.3 mmol/L (3.5-5.1); Sodium 139 mmol/L (135-145); eGFR > 60.00
--- NOTE | 2024-01-10 05:25 | PTCARENOTE ---
Pt SLIC and right arterial line dc'd per order. Byrd remains in place until Dr. Peña rounds per CVPA.
[2024-01-10] MEDS: TYLENOL 1000 MG PO ×3 (06:00→21:59)
[2024-01-10 06:04] LABS: Glucose - Point of Care 125 mg/dl (70-99)
[2024-01-10] MEDS: TORADOL 15 MG IV (06:56)
--- NOTE | 2024-01-10 07:23 | W.PN.INTV ---
Today's Communication / Plan
Recommendations
IS
Post CABG care
Assessment
-
Assessment:
Mr Wander Dawn is a 73/M adm 01-08 for elective CABG in setting of multivessel disease. Seen at office by Dr Peña, prepared for surgery.
Impression:
S/p CABGx4, LORRIE ligation 01-08
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
HTN
HLD
T2DM
CAD
L sciatic pain
Prostate cancer
Former smoker
Calcified granulomas on CT
Plan:
Extubated post surgery
CXR today with no infiltrates
Asp precs
IS
Pressors/antihypertensive/inotropes/diuretics will be provided as needed
Monitor chest tube output
Monitor hemoglobin
Monitor platelet count and coags
Transfuse blood product if needed
CT surgery following chest tubes
Monitor blood sugar
Insulin drip per protocol
DVT prophylaxis
Early nutrition
Early mobilization
Reconsult prn
Diagnostic tests:
CXR 01-09-24: RIJ cords, sternotomy wiring, ETT, chest/med tubes
Subjective Dataa
Subjective Data
Date of Service:
Date of Service: January 10, 2024
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
Subjective:
No major events reported
Extubated post surgery
Doing well postop
Review of Systems
General: Fever (n)
Cardiopulmonary: Dyspnea (n) and Chest Pain (incisional)
GI: Abdominal Pain (n), Nausea (n) and Vomiting
Neuro: Weakness
Objective Data
Data Reviewed
Vital Signs / I&O / Oxygen:
Vital Signs
Temp Pulse Resp BP Pulse Ox
99 F 70 16 129/71 96
01/10/24 06:00 01/10/24 07:00 01/10/24 07:00 01/10/24 07:00 01/10/24 07:00
Intake and Output
01/09/24 01/10/24 01/11/24
06:59 06:59 06:59
Intake Total 883.3 / 895.9 12.6 / 12.6
Output Total 1340 / 1395 55 / 55
Balance -456.7 / -499.1 -42.4 / -42.4
SaO2 [CPAP] 98
SaO2 [SIMV] 95
SaO2 96
Nasal Cannula flow liters per 2
minute
Physical Exam
General: Comfortable
HEENT: Normocephalic and Moist Mucous Membranes
Cardiovascular: Regular Rhythm and Peripheral Edema (n)
Respiratory: Clear, Non-Labored Respirations, Stridor (n) and Chest Tube
GI: Soft, Non Distended and Non Tender
Neurology: Awake, AO x 3 and No Motor Deficits
Skin: Warm
Labs/Micro/Reports
Lab Data
01/10/24 03:48
01/10/24 03:48
Laboratory Results
01/09/24 01/09/24
11:30 14:41
PT 17.0 H
INR 1.40
APTT 27.9
pH 7.40 7.51 H
pCO2 42 29 L
pO2 103 141 H
HCO3 26.0 23.1
O2 Delivery Level
[2024-01-10] MEDS: NOVOLOG FLEXPEN SC (07:42)
--- NOTE | 2024-01-10 07:43 | W.PN.ANS.POP ---
Anesthesia Post Operative
- Anesthesia Post Op Note
Vital Signs Stable-See Nursing Note: Yes
Airway Patent: Yes
Adequate Pain Control: Yes
Change in Mental Status: No
Current Postoperative Nausea & Vomiting: No
Anesthesia Complications: No
General Anesthetic Recall: No
Unplanned Admission: No
Post Op Hydration Adequate: Yes
--- NOTE | 2024-01-10 07:43 | PTCARENOTE ---
Received pt from retail shift supervisor RN; pt resting comfortably in chair; NSR on monitor and VSS; +rub; RIJ Cordis and PIV x1 patent; lungs diminished; IS to 1500; CT x3 to -20 wall suction, no air leak and no crepitus noted; hypoactive bowel sounds; Byrd
catheter draining clear yellow urine; palpable pulses throughout; no edema noted; all surgical sites C/D/I; see nursing documentation for further details.
[2024-01-10 08:00] LABS: Glucose - Point of Care 151 mg/dl (70-99)
--- NOTE | 2024-01-10 08:27 | W.PN.CD ---
Today's Communication / Plan
-
Continue present Rx
Follow ECGs- pericarditis
Impression / Plan
-
BACKGROUND: 73M with hyperlipidemia, hypertension, type 2 diabetes who developed angina and was found to have significant pLAD & mLAD disease. He presents for CABG.
Silverware Supervisor: Dr. Velasquez
CAD S/P CABG x 4 (In situ ALVARENGA to LAD, Ao to radial artery to diagonal, Ao to RSVG to OM1 sequential to OM 3) by Dr Peña 01/09/24
- Good LV function by ENA intraop post CABG
-EKG with diffuse ST elevation c/w pericarditis
-On no drips except insulin
HTN- On no drips
HLD, no lipid panel for review, continue atorvastatin 40mg
Type 2 DM, Hgba1c 6.9%
Prostate cancer, outpatient surveillance
Pacer dysfunction (temp pacer placed intraop)
SUBJECTIVE:
Awake alert in chair and 'sore'
Physical Exam
Vital Signs/Labs
Vital Signs
Temp Pulse Resp BP Pulse Ox
98.3 F 69 20 140/71 96
01/10/24 08:00 01/10/24 08:20 01/10/24 08:00 01/10/24 08:00 01/10/24 08:20
01/09/24 01/10/24 01/11/24
06:59 06:59 06:59
Actual Weight 199 lb 4.766 oz 197 lb 1.492 oz
01/10/24 03:48
01/10/24 03:48
PT 17.0 Sec (11.4-14.6) H 01/09/24 11:30
INR 1.40 01/09/24 11:30
APTT 27.9 Sec (23.4-35.0) 01/09/24 11:30
Magnesium 2.4 mg/dl (1.6-2.3) H 01/10/24 03:48
Physical Exam
Constitutional: No acute distress and Comfortable
EENT: Anicteric
Cardiovascular: Rhythm & rate is regular and S1S2 is normal
Respiratory: Respiratory effort normal, Wheeze Absent and Rhonchi Present
GI: Soft and Non tender
Neuro/Psych: Motor deficits absent
Data Reviewed
-
Date of Service: January 10, 2024
[2024-01-10] MEDS: NEURONTIN 100 MG PO ×3 (08:28→21:59)
[2024-01-10] MEDS: PROTONIX 40 MG PO (08:28)
[2024-01-10] MEDS: SENOKOT-S 1 TABLET PO ×2 (08:28→19:57)
[2024-01-10] MEDS: NORVASC 5 MG PO (08:28)
[2024-01-10] MEDS: LIDOCAINE 4% PATCH 1 PATCH TOPICAL (08:28)
[2024-01-10] MEDS: LOW STRENGTH ASPIRIN 81 MG PO (08:28)
[2024-01-10] MEDS: PLAVIX 75 MG PO (08:28)
[2024-01-10] MEDS: LIPITOR 40 MG PO (08:28)
[2024-01-10] MEDS: LOPRESSOR 12.5 MG PO ×2 (08:28→19:57)
[2024-01-10] MEDS: PACERONE 200 MG PO ×3 (08:28→21:59)
[2024-01-10] MEDS: BACTROBAN 2% OINTMENT 1 APPLIC NASAL ×2 (08:29→19:57)
--- NOTE | 2024-01-10 09:01 | PTCARENOTE ---
Left Pleural Chest Tube removed per CV FIXED INCOME PORTFOLIO MANAGER order; V wire insulated.
[2024-01-10 10:24] LABS: Glucose - Point of Care 134 mg/dl (70-99)
[2024-01-10] MEDS: NSS IV (10:26)
[2024-01-10 12:03] LABS: Glucose - Point of Care 109 mg/dl (70-99)
[2024-01-10] MEDS: LR 500 IV (12:38)
--- NOTE | 2024-01-10 12:42 | PTCARENOTE ---
Assessment unchanged; NSR on monitor and VSS; at bedside and updated.
[2024-01-10] MEDS: NOVOLOG FLEXPEN 4 UNITS SC ×2 (13:40→18:00)
[2024-01-10] MEDS: NON-FORMULARY ITEM 5 MG PO (13:42)
[2024-01-10 14:27] LABS: Glucose - Point of Care 224 mg/dl (70-99)
[2024-01-10 15:07] LABS: Glucose - Point of Care 199 mg/dl (70-99)
[2024-01-10] MEDS: FLEXERIL 5 MG PO (15:34)
[2024-01-10 16:16] LABS: Glucose - Point of Care 144 mg/dl (70-99)
--- NOTE | 2024-01-10 16:16 | PTCARENOTE ---
NSR on monitor and VSS; assessment unchanged; pt ambulated in hallway with RN; Insulin infusing see flow sheet for details.
[2024-01-10] MEDS: NOVOLIN R INSULIN INFUSION 100 IV (16:17)
[2024-01-10] MEDS: NON-FORMULARY ITEM 10 MG PO (17:37)
[2024-01-10 18:02] LABS: Glucose - Point of Care 100 mg/dl (70-99)
[2024-01-10 20:05] LABS: Glucose - Point of Care 181 mg/dl (70-99)
--- NOTE | 2024-01-10 20:15 | PTCARENOTE ---
Assumed care of pt from lucille RN. Pt AAOx3. SR on monitor. HR 70s. Temporary epicardial v-wire insulated. +Rub. BP stable. No edema. +pulses. Pt on RA. POX 94%. IS and deep breathing encouraged. Mediastinal CTx2 to -20 suction, no
airleak/tidaling/crepitus noted at this time, and output minimal. Lung sounds diminished at the base. Abdomen soft/nontender. +BS. +gas. Pt due to void post catheter removal. All surgical sites stable. Glycemic protocol followed. Right IJ cordis and
PIVx1 CDI. Pt walked x1 w/ one person assist before getting into bed. Pt resting in bed at this time. Pt states pain is controlled at this time. Call nielsen within reach. See worklist for full nursing assessment, VS, and interventions.
[2024-01-10 21:14] LABS: Glucose - Point of Care 142 mg/dl (70-99)
--- NOTE | 2024-01-10 22:30 | PTCARENOTE ---
Pt bladder scanned for 286 mL. No urge to void. Pt assisted to stand at side of bed to attempt to void. No urine output.
[2024-01-10 23:13] LABS: Glucose - Point of Care 103 mg/dl (70-99)
[2024-01-11] VITALS (22 sets, daily range): BP systolic 100–155; BP diastolic 55–109; PULSE 74; O2SAT 94–99; BMI 28.3
[2024-01-11] MEDS: DILAUDID 0.5 MG IV (00:19)
--- NOTE | 2024-01-11 00:32 | PTCARENOTE ---
Pt reassessed. Pt SR on monitor. HR 60-70s. Temporary epicardial v-wire intact and insulated. BP stable. Pt on 2 L NC. POX 92-97%. CT assessment unchanged from previous. All surgical sites stable. Glycemic protocol followed. Bladder scanned for 327
mL - pt encouraged to try to void. Pt states no urge to void. See MAR for pain medication administration. Pt repositioned in bed. Call nielsen within reach.
[2024-01-11 00:34] LABS: Hematocrit 33.8 % (39.0-52.0); Mean Corp Hgb Conc. 32.5 g/dL (33.0-37.0); Mean Corpuscular Hgb 29.2 pg (27.0-31.0); Mean Corpuscular Volume 89.7 fL (80.0-94.0); Mean Platelet Volume 9.6 fL (7.4-10.4); Platelet Count 164 10^3/uL (130-400); Red Blood Cell Count 3.77 10^6/uL (4.70-6.10); Red Cell Dist. Width 13.6 % (11.5-14.5); White Blood Cell Count 12.1 10^3/uL (4.8-10.8)
[2024-01-11 00:53] LABS: Glucose - Point of Care 117 mg/dl (70-99)
[2024-01-11 00:57] LABS: Blood Urea Nitrogen 21 mg/dl (9-20); Calcium 8.7 mg/dl (8.4-10.2); Carbon Dioxide 27 mmol/L (22-30); Chloride 106 mmol/L (98-107); Estimated Creatinine Clearance 86 ml/min; Glucose 107 mg/dl (70-99); Magnesium 2.1 mg/dl (1.6-2.3); Potassium 4.1 mmol/L (3.5-5.1); Sodium 135 mmol/L (135-145); eGFR > 60.00
--- NOTE | 2024-01-11 04:15 | PTCARENOTE ---
Previous assessment unchanged. Pt SR on monitor. Temporary epicardial v-wire intact and insulated. HR 60s. BP stable. Pt on [address] assessment unchanged. Glycemic protocol followed. All surgical sites stable. No c/o pain at this time. Call nielsen
within reach.
--- NOTE | 2024-01-11 04:49 | DOWNTIME ---
There was a [employer] Client Mysql Developer Downtime on 01/11/2024 from 0100 to 01/11/2024 at 0439. Downtime documentation of patient's care, including medication administrations, has been reconciled in the electronic record per guidelines. Refer to the
patient's paper chart under the miscellaneous tab to see printed paper medication records and downtime forms.
[2024-01-11 04:57] LABS: Glucose - Point of Care 109 mg/dl (70-99)
--- NOTE | 2024-01-11 04:57 | W.PN.CT ---
Today's Communication / Plan
-
Plan:
-No major issues overnight. Hemodynamically and neurologically intact
-Off all drips but insulin per protocol
-Cont. current meds (ASA,Plavix, Amiodarone, Lopressor, Lipitor, Norvasc for radial graft)
-Will consider d/c (pull) of temporary PW
-Monitor chest tube output for possible d/c if no significant drainage when OOB: 2meds 130/290
-Monitor u/o, scanned for 400 mL this AM, able to void 150 mL. Check post-void residuals
-Tele phase when off insulin gtt
-Consider Diabetes education/management consult given hgb A1C of 6.9
-Maintain cordis another day
-Maintain temporary PW (will pull before d/c home)
-Encourage use of IS
-Wean off of O2 as tolerated
-OOB into chair/Ambulate
-Home in 1-2 days
Assessment / Plan
-
Assessment:
-S/P CABG x 4 (In situ ALVARENGA to LAD, Ao to radial artery to diagonal, Ao to RSVG to OM1 sequential to OM 3)/Open left radial artery harvest/ R EVH/ELAA (35 mm clip) by Dr. Peña, 01/09/24, pod#2
-Multivessel CAD
-USA
-Sinus bradycardia
-[id number] score of 3
-LVEF 55% per intraop ENA
-HTN
-Hyperlipidemia
-T2DM (A1C 6.9)
-Left Sciatica
-Prostate Ca, currently being watched
-S/P Right inguinal herniorrhaphy
-S/P Tonsillectomy/Adenoidectomy
-Acute postop blood loss/Anemia (stable without blood transfusion)
-Acute postop atelectasis
-Acute postop hypovolemia with subsequent hypervolemia
-Acute postop EKG changes c/w acute pericarditis
Discussed patient care with: Cardiology, Nursing, Respiratory Therapy, Pharmacy and Care Team
Subjective
Procedure
-S/P CABG x 4 (In situ ALVARENGA to LAD, Ao to radial artery to diagonal, Ao to RSVG to OM1 sequential to OM 3)/Open left radial artery harvest/ R EVH/ELAA (35 mm clip) by Dr. Peña, 01/09/24
-
Date of Service: January 11, 2024
Pt c/o mild incisional pain, otherwise feels well
Objective Data
-
Lab Results
01/11/24 00:24
01/11/24 00:24
PT 17.0 Sec (11.4-14.6) H 01/09/24 11:30
INR 1.40 01/09/24 11:30
APTT 27.9 Sec (23.4-35.0) 01/09/24 11:30
Vital Signs
Vital Signs
Temp Pulse Resp BP Pulse Ox
97.7 F 68 16 110/64 95
01/11/24 04:00 01/11/24 04:00 01/11/24 04:00 01/11/24 04:00 01/11/24 04:00
CT Intake/Output/Weight
01/10/24 01/10/24 01/11/24
06:59 18:59 06:59
Intake Total 229.7 / 895.9 647.2 / 748.7 101.5 / 748.7
Output Total 590 / 1395 460 / 555 95 / 555
Balance -360.3 / -499.1 187.2 / 193.7 6.5 / 193.7
SaO2: 95 (2L)
Physical Exam
-
General: Awake, Oriented and AOx3
Cardiovascular: Regular rate & rhythm, No Murmurs, No Rub and No Gallop
Respiratory: Decreased Breath Sounds (at bases, otherwise clear)
Sternum: Stable
Incision: Clean, Dry, Intact and Dressing Intact
Extremities: No Edema
Data Reviewed
-
Lab Results: Results Reviewed
Medications: Active Meds Reviewed
Chest X-Ray: Report Reviewed and Image Reviewed
ECG: Report Reviewed and Image Reviewed
--- NOTE | 2024-01-11 05:50 | PTCARENOTE ---
Pt bladder scanned for 456 mL. Pt encouraged to attempt to void. Pt able to void 150 mL. CVPA aware.
[2024-01-11] MEDS: TYLENOL 1000 MG PO ×3 (06:07→21:12)
[2024-01-11 07:13] LABS: Glucose - Point of Care 148 mg/dl (70-99)
[2024-01-11] MEDS: NOVOLOG FLEXPEN 4 UNITS SC (07:46)
[2024-01-11] MEDS: NEURONTIN 100 MG PO ×3 (08:18→21:11)
[2024-01-11] MEDS: PLAVIX 75 MG PO (08:18)
[2024-01-11] MEDS: LOPRESSOR 12.5 MG PO ×2 (08:19→19:09)
[2024-01-11] MEDS: BACTROBAN 2% OINTMENT 1 APPLIC NASAL ×2 (08:19→19:10)
[2024-01-11] MEDS: LOW STRENGTH ASPIRIN 81 MG PO (08:19)
[2024-01-11] MEDS: LIPITOR 40 MG PO (08:19)
[2024-01-11] MEDS: NORVASC 5 MG PO (08:19)
[2024-01-11] MEDS: PROTONIX 40 MG PO (08:19)
[2024-01-11] MEDS: SENOKOT-S 1 TABLET PO ×2 (08:19→19:09)
[2024-01-11] MEDS: PACERONE 200 MG PO ×3 (08:19→21:12)
[2024-01-11] MEDS: LIDOCAINE 4% PATCH 1 PATCH TOPICAL (08:20)
[2024-01-11] MEDS: NON-FORMULARY ITEM 5 MG PO (08:21)
--- NOTE | 2024-01-11 08:30 | PTCARENOTE ---
Assumed care of pt at 0700. Pt is awake, alert, and oriented. Minimal complaints of sternal pain at this time. Pt remains SR with HR 70's. BP 130/66 MAP 83. V wire in place, insulated. Mediastinal chest tubes x2 in place draining serosanguineous
drainage, no sign of air leak or crepitus. Pulse oximetry 95% on room air. Achieving 1500 with IS, continued use encouraged. Pt tolerating PO diet. Remains on insulin gtt at this time per glycemic protocol. Monitoring urine output. Midsternal
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 Left arm with Aquacel dressing in place. Right IJ cordis in place with KVO. Pt currently resting OOB in chair eating breakfast with call nielsen within reach.
[2024-01-11 09:05] LABS: Glucose - Point of Care 255 mg/dl (70-99)
--- NOTE | 2024-01-11 09:23 | W.PN.UPDATE ---
Update Note
Progress Note Update
Skin cleansed with CHG. Suture removed and bipolar epicardial ventricular pacer wire removed without difficulty. Bedrest x 1 hour. Vital signs q15min x 4
[2024-01-11] MEDS: FARXIGA 5 MG PO (09:26)
[2024-01-11] MEDS: GLUCOPHAGE XR EXTENDED RELEASE 2000 MG PO (09:28)
[2024-01-11 10:29] LABS: Glucose - Point of Care 143 mg/dl (70-99)
--- NOTE | 2024-01-11 11:03 | PTCARENOTE ---
Pt ambulated with RN assistance without difficulty. Pt able to void 200ml in urinal. Pt assisted back to bed and temporary epicardial wire pulled at 0920 by JENNY Stubbs. Pt on bedrest x1 hour with q15min vitals. No issues observed. Mediastinal
chest tubes x2 d/c'd per order.
[2024-01-11 11:18] LABS: Glucose - Point of Care 120 mg/dl (70-99)
[2024-01-11] MEDS: NSS 500 IV (11:26)
[2024-01-11 11:29] LABS: Glucose - Point of Care 101 mg/dl (70-99)
[2024-01-11] MEDS: NOVOLOG FLEXPEN SC (12:56)
--- NOTE | 2024-01-11 14:20 | W.PN.CD ---
Addendum entered and electronically signed by Russell Kaiser DO 01/11/24 14:59:
Attestation: I have seen and examined the patient. I can confirm Ms. Rivera findings and I agree with her assessment and plan as documented.
73-year-old man with hypertension, hyperlipidemia, aep-fhvpfbp-bsscrxebm diabetes mellitus admitted for elective CABG.
Patient is doing well postop.
Brief NSVT (5 beats).
No pressors/inotropes.
Chest tubes discontinued.
Breathing has improved.
Continue routine post operative management.
Role for CCA for radial artery graft patency?
Encouraged ambulation and incentive spirometry.
Discharge planning per CT surgery.
Original Note:
Today's Communication / Plan
-
-Encourage ambulation as tolerated and IS use
-continue ASA, plavix, statin, and BB
-follow telemetry, BP's, labs- close post-op monitoring per protocol
Impression / Plan
-
BACKGROUND: 73M with hyperlipidemia, hypertension, type 2 diabetes who developed angina and was found to have significant pLAD & mLAD disease. He presents for CABG. Video Control Engineer: Dr. Velasquez
CAD S/P CABG x 4 (In situ ALVARENGA to LAD, Ao to radial artery to diagonal, Ao to RSVG to OM1 sequential to OM 3) by Dr Peña 01/09/24:
-seems to be recovering well
-Good LV function by ENA intra-op post CABG
-EKG with diffuse ST elevation c/w pericarditis. Patient has no symptoms of this today.
-on aspirin, Plavix, statin, and kalyn
-pacer wire removed this AM and currently SR on telemetry- follow
HTN:
-stable overall
-monitor post-op
HLD:
-continue atorvastatin 40mg, monitor lipids as OP
Type 2 DM, Hgba1c 6.9%
-on SSI, monitor BG
Prostate cancer, outpatient surveillance
SUBJECTIVE:
Feels much better today. Walked 3 times today and felt well. No discomfort.
Physical Exam
Vital Signs/Labs
Vital Signs
Temp Pulse Resp BP Pulse Ox
98 F 75 18 136/74 93
01/11/24 11:17 01/11/24 14:00 01/11/24 11:17 01/11/24 11:13 01/11/24 11:17
01/10/24 01/11/24 01/12/24
06:59 06:59 06:59
Actual Weight 89.4 kg 90.6 kg
01/11/24 00:24
01/11/24 00:24
PT 17.0 Sec (11.4-14.6) H 01/09/24 11:30
INR 1.40 01/09/24 11:30
APTT 27.9 Sec (23.4-35.0) 01/09/24 11:30
Magnesium 2.1 mg/dl (1.6-2.3) 01/11/24 00:24
Physical Exam
Constitutional: No acute distress
EENT: Anicteric
Cardiovascular: Rhythm & rate is regular
Respiratory: Respiratory effort normal and Lungs clear to auscul.
GI: Soft, Non tender and Normal bowel sounds
Neuro/Psych: AO x 3
Other: Skin (midsternal incision no redness, drainage, or swelling, LUE dressing CDI)
Data Reviewed
-
Date of Service: January 11, 2024
EKG: Other (SR)
Labs: Labs Reviewed by me
--- NOTE | 2024-01-11 15:27 | PTCARENOTE ---
Pt with no changes in assessment. Pt remains SR with HR 80's. BP 135/67 MAP 84. Pulse oximetry 94% on room air. Voiding without difficulty in urinal. Pt remains OOB in chair with call nielsen within reach and at bedside.
--- NOTE | 2024-01-11 15:54 | CM ---
CM following for DC planning needs.
Patient is POD#2 from CABG x4/LORRIE clip.
Met w/ patient at bedside. Pt. reports that he is feeling well.
Pt. is hopeful for DC to home tomorrow.
Reviewed DC plan for home w/ CT Transitional Care RN.
CM to follow.
[2024-01-11 16:21] LABS: Glucose - Point of Care 134 mg/dl (70-99)
--- NOTE | 2024-01-11 16:24 | PTCARENOTE ---
Recieved patient from previous RN. ANGEL, SR on tele. Previous assessment unchanged. Blood glucose checked before dinner and no coverage needed per protocol.
[2024-01-11] MEDS: NON-FORMULARY ITEM 10 MG PO (17:28)
--- NOTE | 2024-01-11 18:16 | PTCARENOTE ---
pt placed back to bed. RIJeanette cordis dc'd as ordered, dressing c/d/i.
--- NOTE | 2024-01-11 20:06 | PTCARENOTE ---
Patient VSS, SR on tele with occasional PVCs. Ambulated with RN, no issues with SOB or weakness during walk. Patient received oral medications with no issues.
--- NOTE | 2024-01-11 21:00 | PTCARENOTE ---
Assumed care of patient. Walking rounds completed. Pt AAOx3. SR on monitor. HR 70s. No edema. +pulses throughout. BP stable. RA. Lung sounds diminished at the base. Deep breathing and IS encouraged. Abdomen soft/nontender. Voiding yellow urine. All
surgical sites stable. CT dressing CDI. PIVx1 CDI. Pt OOB in chair. Pt states pain is well controlled at this time. See worklist for full nursing assessment, VS, and interventions. Call nielsen within reach.
[2024-01-12] VITALS (9 sets, daily range): BP systolic 119–159; BP diastolic 66–83; PULSE 76; O2SAT 96–97; BMI 29.0
--- NOTE | 2024-01-12 00:45 | PTCARENOTE ---
Previous assessment unchanged. SR on monitor. HR 70s. BP stable. Pt placed on 2 L NC for POX of 89%. Pt POX% 94% on 2 L NC. Pt assisted OOB to the bathroom to void. Pt repositioned back into bed. No c/o pain at this time. Call nielsen within reach.
[2024-01-12 04:23] LABS: Hematocrit 33.7 % (39.0-52.0); Hemoglobin 11.2 g/dL (13.0-18.0); Mean Corp Hgb Conc. 33.2 g/dL (33.0-37.0); Mean Corpuscular Hgb 28.6 pg (27.0-31.0); Mean Platelet Volume 9.5 fL (7.4-10.4); Platelet Count 162 10^3/uL (130-400); Red Blood Cell Count 3.92 10^6/uL (4.70-6.10); Red Cell Dist. Width 13.4 % (11.5-14.5)
--- NOTE | 2024-01-12 04:30 | PTCARENOTE ---
Previous assessment unchanged. SR on monitor. HR 70s. Pt on 2 L NC. All surgical sites stable. Labs drawn and sent. EKG obtained. No c/o pain at this time. Call nielsen within reach.
[2024-01-12 05:09] LABS: Blood Urea Nitrogen 17 mg/dl (9-20); Calcium 8.5 mg/dl (8.4-10.2); Carbon Dioxide 25 mmol/L (22-30); Chloride 107 mmol/L (98-107); Estimated Creatinine Clearance 99 ml/min; Glucose 114 mg/dl (70-99); Potassium 4.2 mmol/L (3.5-5.1); Sodium 136 mmol/L (135-145); eGFR > 60.00
--- NOTE | 2024-01-12 05:22 | W.PN.CT ---
Today's Communication / Plan
-
-pod #3
-no issues overnight, no complaints, wants to go home
-2v-CXR today
-current meds (ASA, Plavix, Lopressor, Amio, Norvasc for radial graft, Protonix, Farxiga). Mg elevated postop - held
-wean off O2 as tolerated - pOx 95% on 2L
-encourage IS, OOB, continue to ambulate
-possible d/c today
Assessment / Plan
-
Assessment:
-S/P CABG x 4 (In situ ALVARENGA to LAD, Ao to radial artery to diagonal, Ao to RSVG to OM1 sequential to OM 3)/Open left radial artery harvest/ R EVH/ELAA (35 mm clip) by Dr. Peña, 01/09/24, pod#3
-Multivessel CAD
-USA
-Sinus bradycardia
-[id number] score of 3
-LVEF 55% per intraop ENA
-HTN
-Hyperlipidemia
-T2DM (A1C 6.9)
-Left Sciatica
-Prostate Ca, currently being watched
-S/P Right inguinal herniorrhaphy
-S/P Tonsillectomy/Adenoidectomy
-Acute postop blood loss/Anemia (stable without blood transfusion)
-Acute postop atelectasis
-Acute postop hypovolemia with subsequent hypervolemia
-Acute postop EKG changes c/w acute pericarditis
Discussed patient care with: Nursing and Care Team
Subjective
Procedure
-S/P CABG x 4 (In situ ALVARENGA to LAD, Ao to radial artery to diagonal, Ao to RSVG to OM1 sequential to OM 3)/Open left radial artery harvest/ R EVH/ELAA (35 mm clip) by Dr. Peña, 01/09/24
-
Date of Service: January 12, 2024
Objective Data
-
Lab Results
01/12/24 04:07
01/12/24 04:07
PT 17.0 Sec (11.4-14.6) H 01/09/24 11:30
INR 1.40 01/09/24 11:30
APTT 27.9 Sec (23.4-35.0) 01/09/24 11:30
Vital Signs
Vital Signs
Temp Pulse Resp BP Pulse Ox
98 F 77 18 150/77 95
01/12/24 04:08 01/12/24 04:09 01/12/24 04:08 01/12/24 04:08 01/12/24 04:08
CT Intake/Output/Weight
01/11/24 01/11/24 01/12/24
06:59 18:59 06:59
Intake Total 126.1 / 773.3 57.5 / 257.5 200 / 257.5
Output Total 280 / 740 735 / 1485 750 / 1485
Balance -153.9 / 33.3 -677.5 / -1227.5 -550 / -1227.5
SaO2: 95
Physical Exam
-
General: Awake and AOx3
Cardiovascular: Regular rate & rhythm, No Murmurs and No Rub
Respiratory: Decreased Breath Sounds
Sternum: Stable
Incision: Clean, Dry and Intact
Extremities: No Edema
Abdomen: soft, nontender, mildly distended, + flatus, no nausea
Data Reviewed
-
Lab Results: Results Reviewed
Medications: Active Meds Reviewed
Chest X-Ray: Report Reviewed and Image Reviewed
ECG: Report Reviewed and Image Reviewed
[2024-01-12] MEDS: TYLENOL 1000 MG PO (06:28)
[2024-01-12 07:20] LABS: Glucose - Point of Care 132 mg/dl (70-99)
--- NOTE | 2024-01-12 07:45 | W.PN.CD ---
Today's Communication / Plan
-
encouraged more spirometer use
Impression / Plan
-
Impression/Plan: 73M with hyperlipidemia, hypertension, type 2 diabetes who developed angina and was found to have significant pLAD & mLAD disease admitted for elective CABG. [employer] Hand: Dr. Velasquez
#CAD
-S/P CABG x 4 (In situ ALVARENGA to LAD, LRA to diagonal, sequestional SVG to OM1 to OM 3) by Dr Peña, 01/09/24.
-Postop EKG with diffuse ST elevation c/w pericarditis. Patient is asymptomatic.
-Continue routine post operative care and medications, including amlodipine (LRA graft), aspirin, atorvastatin, clopidogrel, metoprolol.
- Continued spirometer use encouraged
#HTN:
-Chronic, elevated.
-Continue post operative medications. Amlodipine to 10mg qd
#HLD:
-Chronic, stable.
-Continue atorvastatin 40mg.
#NIDDM, Type 2 DM,
-Chronic, stable.
-HbA1c 6.9%.
-Restart metformin. Continue dapagliflozin.
#Prostate cancer, outpatient surveillance
[employer] Hand: Dr. Velasquez
Subjective/Interval History:
No acute events.
No subjective complaints.
Physical Exam
Vital Signs/Labs
Vital Signs
Temp Pulse Resp BP Pulse Ox
98 F 79 18 143/83 92
01/12/24 04:08 01/12/24 06:30 01/12/24 04:08 01/12/24 06:30 01/12/24 06:30
01/11/24 01/12/24 01/13/24
06:59 06:59 06:59
Actual Weight 199 lb 11.821 oz 204 lb 9.423 oz
01/12/24 04:07
01/12/24 04:07
PT 17.0 Sec (11.4-14.6) H 01/09/24 11:30
INR 1.40 01/09/24 11:30
APTT 27.9 Sec (23.4-35.0) 01/09/24 11:30
Magnesium 2.0 mg/dl (1.6-2.3) 01/12/24 04:07
Physical Exam
Constitutional: Comfortable
Cardiovascular: Rhythm & rate is regular, S1S2 is normal and Murmur/rub/gallop absent
Respiratory: Respiratory effort normal, Wheeze Absent and Rhonchi Present
GI: Non tender
Neuro/Psych: AO x 3 and Motor deficits absent
Data Reviewed
-
Date of Service: January 12, 2024
[2024-01-12] MEDS: PACERONE 200 MG PO (08:02)
[2024-01-12] MEDS: LOPRESSOR 12.5 MG PO (08:02)
[2024-01-12] MEDS: PROTONIX 40 MG PO (08:02)
[2024-01-12] MEDS: FARXIGA 5 MG PO (08:03)
[2024-01-12] MEDS: SENOKOT-S 1 TABLET PO (08:03)
[2024-01-12] MEDS: PLAVIX 75 MG PO (08:03)
[2024-01-12] MEDS: NORVASC 5 MG PO (08:03)
[2024-01-12] MEDS: LASIX 40 MG IV (08:04)
[2024-01-12] MEDS: LOW STRENGTH ASPIRIN 81 MG PO (08:04)
[2024-01-12] MEDS: KLOR-CON 20 MEQ PO (08:04)
[2024-01-12] MEDS: NEURONTIN 100 MG PO (08:04)
[2024-01-12] MEDS: LIPITOR 40 MG PO (08:04)
[2024-01-12] MEDS: LIDOCAINE 4% PATCH TOPICAL (08:05)
[2024-01-12] MEDS: NON-FORMULARY ITEM 5 MG PO (08:06)
[2024-01-12] MEDS: BACTROBAN 2% OINTMENT 1 APPLIC NASAL (08:07)
[2024-01-12] MEDS: GLUCOPHAGE XR EXTENDED RELEASE 2000 MG PO (08:14)
--- NOTE | 2024-01-12 09:35 | PTCARENOTE ---
Rec'd pt this shift awake and alert sitting in chair. Pt NSR on monitor, RA. Pt encouraged to cough and deep breathe and to use IS. Pt sent for CXR this am. AM meds given. See worklist for VS/I and O and assessments.
[2024-01-12 11:57] LABS: Glucose - Point of Care 108 mg/dl (70-99)
[2024-01-12] MEDS: NSS IV (12:05)
--- NOTE | 2024-01-12 13:03 | W.DCSUMMARY ---
Discharge Summary
Discharge Data
Date of Admission: 01/09/24
Date of Discharge: 01/12/24
Total time spent discharging patient (in min): 35
-
Pending Results: No
Hospital Course
Primary care physician:
Zudro Daniels
Outpatient paper bundler:
Garfield Velasquez
Inpatient consultants:
CBC, teaseler
Procedures:
1. Coronary artery bypass grafting x 4 (In situ ALVARENGA to LAD, Ao to radial artery to diagonal, Ao to RSVG to OM1 sequential to OM 3) and Left atrial appendage ligation, 35mm clip
Primary Diagnosis:
1. Multivessel Coronary Artery Disease with Proximal LAD and Exertional Angina
Secondary Diagnoses:
1. Hypertension
2. Hyperlipidemia
3. Type 2 diabetes mellitus
4. Diagnosis of prostate cancer
HPI: 73-year-old male with worsening exertional chest pain over the last 3 months underwent a left heart cath which showed multivessel disease that presented electively on 01/[address] a CABG with Dr. Peña
Hospital course: Patient was electively admitted on 01/08 for a CABG with Dr. Peña. He returned to the CVICU postprocedure on Precedex, nitroglycerin, and insulin infusions. Precedex was weaned off and patient was extubated by 1500. On 01/09
postoperative day #1 slick, arterial line, pleural chest tube, and Byrd catheter were discontinued. Patient had a low urine output and was treated with 500 cc of lactated Ringer's. He was started on beta-blockers, aspirin, and Plavix. And then
he was started on amlodipine for radial graft patency on 01/10 postoperative day #2, temporary pacing wires were removed without event and mediastinal chest tube was removed later. Cordis was discontinued. On 01/11 postoperative day #3 patient was
treated with 40 mg of IV Lasix for fluid overload and Norvasc dose was increased to 10 mg daily. Upon discharge he was restarted on his home dose of atenolol and two-view chest x-ray remained stable. He was deemed stable for discharge and patient
was sent home with discharge instructions.
Home medication changes:
See below
Discharge Plan
-
Patient Disposition: Home (Routine Discharge)
Discharge Diagnosis/Procedures: CABG/LORRIE clip
Condition: Good
Diet: Low Cholesterol and Diabetic, Carb Controlled
Activity: No strenuous activity
Driving Restrictions: Not until seen by your Dr
Bathing Restrictions: OK to Shower
Blood Work: BMP in 5 days
Other Services: Cardiac Rehab
Specialty Instructions: Weigh Daily- Call MD for wt gain/loss 3 lbs overnight/5 lbs in 1 week
Activity Restrictions/Additional Instructions:
ACTIVITY:
-No strenuous activity: no heavy lifting, pushing, pulling anything over 15 pounds for one month
-continue to use stairs as tolerated
DRIVING RESTRICTIONS:
-No driving for one month or until approved by your surgeon
WOUND CARE:
-Shower daily. Use soap & water.
-No lotions, creams or powders on incision area.
DIET:
-continue a low fat/low cholesterol diet.
-IF you are diabetic, continue carb controlled diet.
CARDIAC REHAB:
-Please make appointment to start in 5-6 weeks with your local hospital program. (See Cardiac Rehabilitation Discharge Booklet).
SPECIALTY INSTRUCTIONS:
-Weigh yourself daily. Call your physician for any weight gain/loss of 3 lbs overnight or 5 lbs in one week.
-REPORT any clicking noise or uneven appearance of your sternum to your surgeon immediately.
-If you smoke, you are instructed to quit. The [place] smoking hotline phone number is [phone]
Referrals:
CT Transitional Care Nurse [Outside] (The Cardiothoracic Transitional Care Nurse will call you to set up a visit in 1-2 days.)
[facility] [Outside] - 02/13/24 9:30 am
(Cardiac Rehab Orientation and� First Exercise appointment is on _Mon 02/12 at 9:30 am
The Cardiac Rehab gym is located on the first floor of the [facility] [place].)
Zurdo Daniels DO [Family Provider] -
Garfield Velasquez MD [Active] - 02/20/24 10:00 am (*please note: This appointment is in the [facility] [place], [address] [place] [address] *)
Shekhar Peña MD [Active] - 02/15/24 1:30 pm
Additional Discharge Medication Instructions: Stop taking your hydrochlorothiazide and olmesartan.
You will take plavix for one year total after your surgery
You will be on a diuretic for 5 days after discharge take your potassium pills only while on the diuretic
Prescriptions:
New
acetaminophen 325 mg Tablet
1,000 mg PO Q6HPRN PRN (Reason: mild pain,headache,temp >101F ) Qty: 0 0RF
clopidogrel 75 mg Tablet
75 mg PO DAILY Qty: 90 3RF
pantoprazole 40 mg Tablet,Delayed Release (Dr/Ec)
40 mg PO DAILY Qty: 30 1RF
cyclobenzaprine 10 mg Tablet
5 mg PO Q8HPRN PRN (Reason: muscle spasm) Qty: 10 0RF
furosemide [Lasix] 20 mg tablet
20 mg PO DAILY Qty: 5 0RF
potassium chloride 10 mEq capsule, extended release
10 meq PO DAILY Qty: 5 0RF
Continued
atorvastatin 40 mg Tablet
40 mg PO DAILY
metformin 500 mg Tablet
2,000 mg PO DAILY
atenolol 25 mg Tablet
25 mg PO DAILY
amlodipine 10 mg Tablet
10 mg PO DAILY
alfuzosin 10 mg Tablet Extended Release 24 Hr
10 mg PO 1400
tadalafil 5 mg Tablet
5 mg PO DAILY
dapagliflozin propanediol [Farxiga] 5 mg Tablet
5 mg PO DAILY
aspirin 81 mg Capsule
81 mg PO DAILY
ferrous sulfate [iron] 325 mg (65 mg iron) Tablet
325 mg PO Q72H
Discontinued
olmesartan 40 mg Tablet
40 mg PO DAILY
hydrochlorothiazide 12.5 mg Tablet
12.5 mg PO DAILY
Discharge Orders:
Discharge Patient (As Directed); Ordered 01/12/24
Ordered By: Heather Schmitt
Care Plan Goals
Care Plan Goals:
Problem: Readiness for enhanced knowledge related to diagnosis and treatment plan
Goal: Understand your diagnosis and treatment plan needs, including medications if applicable.
Instructions: Know your diagnosis, underlying causes and treatment plan options, including medications if applicable. Consult with your health care team to learn about your diagnosis and treatment plan, including medications if applicable.
Discharge Date and Time
Print Language: [place]
--- NOTE | 2024-01-12 13:56 | PTCARENOTE ---
discharge instructions given to patient and patients . Encouraged questions. INT d/c'd.
--- NOTE | 2024-01-12 14:06 | CM ---
CM following for DC planning needs.
Met w/ patient, spouse at bedside while pt. was being discharged to home.
Plan is for home w/ CT Transitional Care RN.
There are no additional needs identified.
== END 2024-01-12 14:31 | disposition home or self-care (01) | DRG 236 ==
LOC: CVICU 05:04
PROVIDERS: Nurse Practitioner; ADMITTING PHYSICIAN Thoracic Surgery (Cardiothoracic Vascular Surgery); CONSULT PHYSICIAN Internal Medicine Cardiovascular Disease; FAMILY PHYSICIAN Family Medicine
PROC: 021109W Bypass Coronary Artery, Two Arteries from Aorta with Autologous Venous Tissue, Open Approach (ICD-10-PCS; 2024-01-09)
PROC: 02100AW Bypass Coronary Artery, One Artery from Aorta with Autologous Arterial Tissue, Open Approach (ICD-10-PCS; 2024-01-09)
PROC: 02L70CK Occlusion of Left Atrial Appendage with Extraluminal Device, Open Approach (ICD-10-PCS; 2024-01-09)
PROC: B24BZZ4 Ultrasonography of Heart with Aorta, Transesophageal (ICD-10-PCS; 2024-01-09)
PROC: 06BP4ZZ Excision of Right Saphenous Vein, Percutaneous Endoscopic Approach (ICD-10-PCS; 2024-01-09)
PROC: 5A1221Z Performance of Cardiac Output, Continuous (ICD-10-PCS; 2024-01-09)
PROC: 05BA0ZZ Excision of Left Brachial Vein, Open Approach (ICD-10-PCS; 2024-01-09)
PROC: 02100Z9 Bypass Coronary Artery, One Artery from Left Internal Mammary, Open Approach (ICD-10-PCS; 2024-01-09)
DX: I25.119 Atherosclerotic heart disease of native coronary artery with unspecified angina pectoris (principal); I47.20 Ventricular tachycardia, unspecified; I30.9 Acute pericarditis, unspecified; J98.11 Atelectasis; I10 Essential (primary) hypertension; E78.00 Pure hypercholesterolemia, unspecified; E11.9 Type 2 diabetes mellitus without complications; C61 Malignant neoplasm of prostate; Z79.84 Long term (current) use of oral hypoglycemic drugs
CPT/HCPCS: 36415; 71045; 71046; 71250; 80048; 80053; 81003; 81015; 82248; 82330; 82565; 82805; 82947; 82962; 83036; 83735; 84132; 84302; 84520; 85014; 85018; 85027; 85049; 85610; 85730; 86850; 86900; 86901; 86920; 87070; 93005; 93312; 93320; 93325; 93880; 94002; P9045

== ENCOUNTER 2024-02-22 11:25 | Outpatient (RCR) | payer MEDICARE, SELFPAY ==
[2024-02-13 10:50] LABS: Glucose - Point of Care 101 mg/dl (70-99)
[2024-02-13 12:03] LABS: Glucose - Point of Care 91 mg/dl (70-99)
[2024-02-15 11:04] LABS: Glucose - Point of Care 127 mg/dl (70-99)
[2024-02-15 11:42] LABS: Glucose - Point of Care 85 mg/dl (70-99)
[2024-02-17 10:52] LABS: Glucose - Point of Care 112 mg/dl (70-99)
[2024-02-22 11:01] LABS: Glucose - Point of Care 100 mg/dl (70-99)
[2024-02-22 12:03] LABS: Glucose - Point of Care 74 mg/dl (70-99)
[2024-02-22 12:20] LABS: Glucose - Point of Care 92 mg/dl (70-99)
== END 2024-02-22 23:59 | disposition home or self-care (01) ==
LOC: CRHB 11:25
PROVIDERS: ATTENDING PHYSICIAN Internal Medicine Cardiovascular Disease
DX: I25.10 Atherosclerotic heart disease of native coronary artery without angina pectoris (principal); Z95.1 Presence of aortocoronary bypass graft
CPT/HCPCS: 82962; G0422; G0423

== ENCOUNTER 2024-03-23 11:19 | Outpatient (RCR) | payer MEDICARE, SELFPAY ==
[2024-02-27 11:10] LABS: Glucose - Point of Care 98 mg/dl (70-99)
[2024-02-27 12:08] LABS: Glucose - Point of Care 89 mg/dl (70-99)
[2024-02-29 10:51] LABS: Glucose - Point of Care 162 mg/dl (70-99)
[2024-02-29 11:47] LABS: Glucose - Point of Care 75 mg/dl (70-99)
[2024-02-29 11:58] LABS: Glucose - Point of Care 101 mg/dl (70-99)
[2024-03-02 11:15] LABS: Glucose - Point of Care 112 mg/dl (70-99)
[2024-03-02 12:09] LABS: Glucose - Point of Care 99 mg/dl (70-99)
[2024-03-05 11:06] LABS: Glucose - Point of Care 154 mg/dl (70-99)
[2024-03-05 12:02] LABS: Glucose - Point of Care 96 mg/dl (70-99)
[2024-03-07 10:55] LABS: Glucose - Point of Care 114 mg/dl (70-99)
[2024-03-07 11:57] LABS: Glucose - Point of Care 78 mg/dl (70-99)
[2024-03-07 12:05] LABS: Glucose - Point of Care 107 mg/dl (70-99)
[2024-03-09 10:57] LABS: Glucose - Point of Care 185 mg/dl (70-99)
[2024-03-09 11:53] LABS: Glucose - Point of Care 124 mg/dl (70-99)
[2024-03-12 11:11] LABS: Glucose - Point of Care 154 mg/dl (70-99)
[2024-03-12 12:07] LABS: Glucose - Point of Care 83 mg/dl (70-99)
[2024-03-14 10:49] LABS: Glucose - Point of Care 223 mg/dl (70-99)
[2024-03-14 11:52] LABS: Glucose - Point of Care 124 mg/dl (70-99)
[2024-03-16 10:52] LABS: Glucose - Point of Care 182 mg/dl (70-99)
[2024-03-16 11:45] LABS: Glucose - Point of Care 139 mg/dl (70-99)
[2024-03-19 11:09] LABS: Glucose - Point of Care 193 mg/dl (70-99)
[2024-03-19 12:08] LABS: Glucose - Point of Care 145 mg/dl (70-99)
[2024-03-21 10:53] LABS: Glucose - Point of Care 188 mg/dl (70-99)
[2024-03-21 11:45] LABS: Glucose - Point of Care 125 mg/dl (70-99)
== END 2024-03-23 23:59 | disposition home or self-care (01) ==
LOC: CRHB 11:19
PROVIDERS: ATTENDING PHYSICIAN Internal Medicine Cardiovascular Disease; FAMILY PHYSICIAN Internal Medicine Clinical Cardiac Electrophysiology; REFERRING PHYSICIAN Family Medicine
DX: I25.10 Atherosclerotic heart disease of native coronary artery without angina pectoris (principal); Z95.1 Presence of aortocoronary bypass graft
CPT/HCPCS: 82962; G0422; G0423

== ENCOUNTER 2024-04-25 11:23 | Outpatient (RCR) | payer MEDICARE, SELFPAY | END 2024-04-25 23:59 | disposition home or self-care (01) | LOC: CRHB 11:23 | PROVIDERS: ATTENDING PHYSICIAN Internal Medicine Cardiovascular Disease; FAMILY PHYSICIAN Internal Medicine Clinical Cardiac Electrophysiology; REFERRING PHYSICIAN Family Medicine | DX: I25.10 Atherosclerotic heart disease of native coronary artery without angina pectoris (principal); Z95.1 Presence of aortocoronary bypass graft | CPT/HCPCS: G0422; G0423 ==

== ENCOUNTER 2024-05-04 16:53 | Outpatient (RCR) | payer MEDICARE, SELFPAY | END 2024-05-04 23:59 | disposition home or self-care (01) | LOC: CRHB 16:53 | PROVIDERS: ATTENDING PHYSICIAN Internal Medicine Cardiovascular Disease; FAMILY PHYSICIAN Internal Medicine Clinical Cardiac Electrophysiology; REFERRING PHYSICIAN Family Medicine | DX: I25.10 Atherosclerotic heart disease of native coronary artery without angina pectoris (principal); Z95.1 Presence of aortocoronary bypass graft | CPT/HCPCS: G0422; G0423 ==